=== PATIENT | female | born 1980 | race Two or more races ===

== ENCOUNTER 2022-12-01 20:06 | Emergency (ER) | payer SELFPAY ==
[~2022-12-01] VITALS: Ht 124.5 cm; Wt 68.2 kg
[2022-12-01] MEDS ORDERED: TETRACAINE HCL 0.5% OPTH(EYE) SOLN 4ML LEFTEYE ONE (21:00)
[2022-12-01] MEDS ORDERED: FLUORESCEIN SOD OPTH TEST STRIP LEFTEYE ONE (21:00)
[2022-12-01] MEDS ORDERED: ERYTHROMY OPTH OINT 5mg/gm 1gm or 3.5gm tube OP ONE (21:15)
[2022-12-01] MEDS ORDERED: HYDROcodone-ACET 5/325MG TAB PO ONE (21:15)
[2022-12-01 22:50] VITALS: BP 126/76
== END 2022-12-01 22:55 | disposition home or self-care (01) ==
LOC: ER 20:06
DX: S05.02XA Injury of conjunctiva and corneal abrasion without foreign body, left eye, initial encounter (principal); Z88.1 Allergy status to other antibiotic agents; Y08.89XA Assault by other specified means, initial encounter; Y93.89 Activity, other specified; Y92.098 Other place in other non-institutional residence as the place of occurrence of the external cause; Y99.8 Other external cause status
CPT/HCPCS: 70486